=== PATIENT | male | born 1965 | race Caucasian/White ===

== ENCOUNTER 2018-02-12 17:20 | Inpatient (IN) ==
[2018-02-12 18:36] LABS: Basophils # 0.1 10*3/uL (0.0-0.2); Basophils % 0.7 % (0.0-0.8); Eosinophils # 1.7 10*3/uL (0.0-0.87); Eosinophils % 10.7 % (0.00-10.9); Immature Granulocytes % 0.6 %; Lymphocytes # 2.3 10*3/uL (1.4-4.0); Lymphocytes % 14.3 % (21.2-54.2); Mean Corpuscular HGB Conc 33.3 GM/DL (32-36); Mean Corpuscular Hemoglobin 30 PG (27-34); Mean Corpuscular Volume 90.1 FL (87-102); Mean Platelet Volume 10.6 FL (9.6-12.0); Monocytes # 1.2 10*3/uL (0.11-0.8); Monocytes % 7.7 % (1.7-12.7); Neutrophils # 10.6 10*3/uL (1.4-7.4); Platelet Count 238 T/CUMM (130-400); Red Blood Count 5.33 MC/CUMM (3.8-5.5); Red Cell Distribution Width 12.1 % (9.3-17.3)
[2018-02-12 18:54] LABS: Albumin 3.9 G/DL (3.4-5.0); Bilirubin,Total 0.5 MG/DL (0.2-1.0); Calcium 9.4 MG/DL (8.5-10.1); Osmolality,Calculated 277.4 MOS/KG (273-304); Potassium 3.9 MMOL/L (3.5-5.1); Total Protein 7.8 G/DL (6.4-8.3)
[2018-02-12] MEDS ORDERED: PIPERACILLIN/TAZOBACTAM 3,375 MG in SODIUM CHLORIDE 0.9% 100 ML IV STA (20:10)
[2018-02-12] MEDS ORDERED: ACETAMINOPHEN 325 MG TABLET PO PRN (20:56)
[2018-02-12] MEDS ORDERED: HYDROmorphone 2 MG/1 ML VIAL IV PRN (20:56)
[2018-02-12] MEDS ORDERED: ONDANSETRON 4 MG/2 ML VIAL IV PRN (20:56)
[2018-02-12] MEDS: LACTATED RINGERS 1,000 ML IV SCH (21:21)
[2018-02-13] MEDS: LACTATED RINGERS 1,000 ML IV SCH ×3 (05:52→20:55)
[2018-02-13] MEDS: PIPERACILLIN/TAZOBACTAM 3,375 MG in SODIUM CHLORIDE 0.9% 100 ML IV SCH ×3 (05:53→20:26)
[2018-02-13] MEDS: PANTOPRAZOLE 40 MG TABLET PO SCH (08:43)
[2018-02-13 13:52] LABS: Apearance,Urine CLEAR (Clear); Bilirubin,Urine Negative (Negative); Blood, Urine Negative (Negative); Glucose,Urine (UA) Negative (Negative); Ketones,Urine Negative (Negative); Nitrite,Urine Negative (Negative); Protein,Urine Negative; RBC,Urine 1 /HPF (0-4); Urine Color Straw (Yellow); Urine Specific Gravity 1.005 (1.001-1.035); Urine Urobilinogen < 2.0 EU/DL (0.2-1.0); WBC,Urine 1 /HPF (0-6)
[2018-02-14] MEDS: PIPERACILLIN/TAZOBACTAM 3,375 MG in SODIUM CHLORIDE 0.9% 100 ML IV SCH ×2 (05:35→14:44)
[2018-02-14 06:16] LABS: Basophils # 0.1 10*3/uL (0.0-0.2); Basophils % 0.7 % (0.0-0.8); Eosinophils % 23.9 % (0.00-10.9); Hematocrit 45.6 VOL% (42.0-52.0); Hemoglobin 14.7 GM/DL (14.0-18.0); Immature Granulocytes % 0.5 %; Immature Granulocytes Absolute 0.06 #; Lymphocytes # 2.2 10*3/uL (1.4-4.0); Lymphocytes % 17.6 % (21.2-54.2); Mean Corpuscular HGB Conc 32.2 GM/DL (32-36); Mean Corpuscular Hemoglobin 29 PG (27-34); Mean Corpuscular Volume 90.8 FL (87-102); Mean Platelet Volume 11.1 FL (9.6-12.0); Monocytes % 8.4 % (1.7-12.7); Neutrophils # 6.1 10*3/uL (1.4-7.4); Neutrophils % 48.9 % (38.7-73.9); Platelet Count 222 T/CUMM (130-400); Red Blood Count 5.02 MC/CUMM (3.8-5.5); Red Cell Distribution Width 12.2 % (9.3-17.3); White Blood Count 12.4 T/CUMM (4-12)
[2018-02-14] MEDS: LACTATED RINGERS 1,000 ML IV SCH ×3 (06:30→15:04)
[2018-02-14 06:38] LABS: Albumin 3.4 G/DL (3.4-5.0); Bilirubin,Total 0.8 MG/DL (0.2-1.0); Calcium 8.6 MG/DL (8.5-10.1); Osmolality,Calculated 280.1 MOS/KG (273-304); Potassium 3.6 MMOL/L (3.5-5.1)
[2018-02-14] MEDS ORDERED: LIDOCAINE 1%/EPI INJ 20 ML VIAL ONE ×2 (06:39→06:40)
[2018-02-14] MEDS ORDERED: BUPIVACAINE MPF 0.25% /EPI 30 ML VIAL ONE (06:39)
[2018-02-14 07:54] LABS: Eosinophils 31 % (0-10); Lymphocytes 15 % (20-55); Platelet Estimate Adequate; Segmented Neutrophils 46 % (50-85); Total Cells Counted 100
[2018-02-14 07:55] LABS: Hypochromasia Slight
[2018-02-14] MEDS: PANTOPRAZOLE 40 MG TABLET PO SCH (08:02)
[2018-02-14] MEDS ORDERED: SUGAMMADEX 200 MG/2 ML VIAL IV ONE (08:05)
[2018-02-14] MEDS ORDERED: DESFLURANE 1 UNIT/15 MINUTE INH ONE (08:33)
[2018-02-14] MEDS ORDERED: DEXAMETHASONE 10 MG/1 ML VIAL ONE (08:33)
[2018-02-14] MEDS ORDERED: ONDANSETRON 4 MG/2 ML VIAL ONE (08:33)
[2018-02-14] MEDS ORDERED: PROPOFOL 200 MG/20 ML VIAL IV ONE (08:33)
[2018-02-14] MEDS ORDERED: LACTATED RINGERS 1,000 ML IV ONE (08:34)
[2018-02-14] MEDS ORDERED: ESMOLOL 100 MG/10 ML VIAL IV ONE (08:34)
[2018-02-14] MEDS ORDERED: ROCURONIUM 100 MG/10 ML VIAL IV ONE (08:34)
[2018-02-14] MEDS ORDERED: KETOROLAC 30 MG/1 ML VIAL ONE (08:34)
[2018-02-14] MEDS ORDERED: ACETAMINOPHEN 1,000 MG/100 ML VIAL IV ONE (08:34)
[2018-02-14 14:21] VITALS: BP 130/78
[2018-02-15] MEDS ORDERED: MONTELUKAST 10 MG TABLET PO SCH (09:00)
[2018-02-15] MEDS ORDERED: LORATADINE 10 MG TABLET PO SCH (09:00)
== END 2018-02-14 14:11 | disposition home or self-care (01) | DRG 419 ==
LOC: N.ED 17:20 → N.EDINP 20:09 → N.3E 20:55
PROVIDERS: ADMIT Surgery; ATTEND Surgery
PROC: LAPCHOL (2018-02-14 07:07)